=== PATIENT | female | born 1975 | race Caucasian/White ===

== ENCOUNTER 2022-06-29 15:27 | Emergency (ER) | payer OTHER ==
[~2022-06-29] VITALS: Ht 167.6 cm; Wt 41.7 kg
== END 2022-06-29 18:01 | disposition home or self-care (01) ==
LOC: ED 15:27
DX: R10.2 Pelvic and perineal pain (principal)
CPT/HCPCS: 36415; 76830; 76856; 80053; 81001; 84703; 85025; 85060; 99284-25